=== PATIENT | male | born 1985 | race Two or more races ===

== ENCOUNTER 2017-04-22 06:08 | Emergency (ER) | payer OTHER ==
[~2017-04-22] VITALS: Ht 193 cm; Wt 93.2 kg
[2017-04-22] MEDS ORDERED: TYLE325T5 PO (06:24)
[2017-04-22] MEDS ORDERED: ASPIRIN 81 MG CHEW TABLET PO ONE (07:15)
[2017-04-22 07:25] LABS: BASO % 0.6 % (0.0-1.0); EOS # 0.1 K/mm3 (0.0-0.50); EOS % 1.6 % (0.0-3.0); LARGE UNSTAINED CELL # 0.1 K/mm3 (0.0-0.4); LARGE UNSTAINED CELL % 2.2 % (0.0-4.0); MEAN CORPUSCULAR HEMOGLOBIN 30.5 pg (27.0-33.0); MEAN CORPUSCULAR HGB CONC 33.4 g/dl (32.0-36.5); MEAN CORPUSCULAR VOLUME 91.4 fl (80.0-96.0); MONO # 0.4 K/mm3 (0.0-0.8); MONO % 6.9 % (0.0-5.0); NEUTROPHILS # 2.6 K/mm3 (1.8-7.7); NEUTROPHILS % 51.8 % (36.0-66.0); PLATELET COUNT, AUTOMATED 163 k/mm3 (150-450); RED CELL DISTRIBUTION WIDTH 12.9 % (11.5-14.5)
[2017-04-22 07:51] LABS: ANION GAP 3 MEQ/L (8-16); BLOOD UREA NITROGEN 17 MG/DL (7-18); CALCIUM LEVEL 9.1 MG/DL (8.5-10.1); CARBON DIOXIDE LEVEL 33 MEQ/L (21-32); CHLORIDE LEVEL 108 MEQ/L (98-107); CREATININE FOR GFR 1.24 MG/DL (0.70-1.30); GLOMERULAR FILTRATION RATE > 60.0 (>60); GLUCOSE, FASTING 91 MG/DL (70-105); POTASSIUM SERUM 4.1 MEQ/L (3.5-5.1); SODIUM LEVEL 144 MEQ/L (136-145)
--- NOTE | 2017-04-22 08:11 | REP ---
Clinical: Chest pain . Comparison: None . Findings: The mediastinum and cardiac silhouette are stable and within normal limits for portable technique. The lung hancock are clear without acute consolidation, effusion, or pneumothorax. Skeletal structures are intact. Impression: Normal portable chest x-ray Signed by Eugene Woods MD 04/22/2017 08:02 A
[2017-04-22 08:30] VITALS: BP 117/79
[2017-04-22] MEDS ORDERED: IBUP80TA PO (08:35)
--- NOTE | 2017-04-23 09:14 | ECGEPIP ---
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
== END 2017-04-22 09:03 | disposition home or self-care (01) ==
LOC: M ED 06:53
DX: R07.89 Other chest pain (principal); R00.1 Bradycardia, unspecified; I44.0 Atrioventricular block, first degree

== ENCOUNTER 2017-05-02 22:24 | Emergency (ER) | payer OTHER ==
[~2017-05-02] VITALS: Ht 193 cm; Wt 95.9 kg
[~2017-05-02 22:24] MED LIST: IBUP80TA PO; TYLE325T5 PO
[2017-05-02 22:25] VITALS: BP 118/69
--- NOTE | 2017-05-04 07:18 | ECGEPIP ---
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
== END 2017-05-03 00:04 | disposition left against medical advice (07) ==
LOC: M ED 22:24
DX: R07.9 Chest pain, unspecified (principal)

== ENCOUNTER → 2017-06-13 | Outpatient (REF) | payer OTHER ==
[2017-06-13 10:42] LABS: % NORMAL FORMS 4 % (>=4); IMMOTILITY 70 %; NON PROGRESSIVE MOTILITY (c) 12 %; PROGRESSIVE MOTILITY (a) 18 % (>=32); SPERM# 30.8 M/Ejac (>=39); TOTAL MOTILITY 30 % (>=40)
[2017-06-13 10:43] LABS: TOTAL FUNCTIONAL 0.5 M/Ejac.; TOTAL PROGRESSIVE SPERM 5.4 M/Ejac.
== END ==
LOC: M LAB REF 10:04
PROVIDERS: ATTEND Student in an Organized Health Care Education/Training Program
DX: Z31.41 Encounter for fertility testing (principal)

== ENCOUNTER → 2017-06-26 | Outpatient (REF) | payer OTHER ==
[2017-06-26 12:43] LABS: % NORMAL FORMS < 4 % (>=4); SPERM# 75.5 M/Ejac (>=39); TOTAL PROGRESSIVE SPERM 4.5 M/Ejac.
[2017-06-26 12:44] LABS: TOTAL FUNCTIONAL 0.2 M/Ejac.
== END ==
LOC: M LAB REF 10:53
PROVIDERS: ATTEND Student in an Organized Health Care Education/Training Program
DX: Z31.41 Encounter for fertility testing (principal)

== ENCOUNTER → 2017-09-10 | Outpatient (REF) | payer OTHER | LOC: M SMT 12:57 | PROVIDERS: ATTEND Nurse Practitioner Family | DX: N50.819 Testicular pain, unspecified (principal) | CPT/HCPCS: 81001; 87086; G0463 ==

== ENCOUNTER 2017-09-28 20:51 | Emergency (ER) | payer OTHER ==
[~2017-09-28] VITALS: Ht 193 cm; Wt 95.9 kg
[2017-09-28] MEDS ORDERED: DERMABOND TOPICAL SKIN ADHESIVE TOP ONE (23:00)
[2017-09-28 23:09] VITALS: BP 137/83
== END 2017-09-28 23:21 | disposition home or self-care (01) ==
LOC: M ED 20:51
DX: S71.111A Laceration without foreign body, right thigh, initial encounter (principal); W45.8XXA Other foreign body or object entering through skin, initial encounter; Y92.009 Unspecified place in unspecified non-institutional (private) residence as the place of occurrence of the external cause; Y93.E8 Activity, other personal hygiene; Y99.8 Other external cause status

== ENCOUNTER → 2018-01-03 | Outpatient (CLI) | payer OTHER ==
[2018-01-03 08:37] LABS: ESTRADIOL 38.3 PG/ML (<39.8)
[2018-01-03 08:47] LABS: SEMEN APPEARANCE OPAQUE (OPAQUE); SEMEN VOLUME 3.2 ML (4.0-5.0)
[2018-01-03 08:48] LABS: #IMMOTILE SPERM COUNTED 9.5; #MOTILE SPERM COUNTED 3.5; % MOTILITY 26 (> 40%); SEMEN VISCOSITY LIQUID (LIQUID); SEMEN WBC <=1 M/ml (<=1 M/ml); SPERM CONCENTRATION 6.5 M/ml (> 15 M/ml)
[2018-01-04 14:13] LABS: TESTOSTERONE FREE (DIRECT) 10.5 pg/mL (8.7-25.1)
== END ==
LOC: M LAB 07:19
DX: N46.9 Male infertility, unspecified (principal)

== ENCOUNTER 2018-01-24 20:53 | Emergency (ER) | payer OTHER | END 2018-01-24 22:37 | disposition home or self-care (01) | LOC: M ED 20:53 | DX: M25.562 Pain in left knee (principal); M25.561 Pain in right knee; M54.2 Cervicalgia; M54.5 Low back pain | CPT/HCPCS: 99282 ==

== ENCOUNTER → 2018-04-21 | Outpatient (CLI) | payer OTHER ==
[2018-04-21 10:39] LABS: ESTRADIOL 47.9 PG/ML (<39.8)
[2018-04-21 11:02] LABS: #MOTILE SPERM COUNTED 3; SEMEN APPEARANCE OPAQUE (OPAQUE); SEMEN VISCOSITY VISCOUS (LIQUID); SEMEN VOLUME 2.2 ML (4.0-5.0); SEMEN WBC <=1 M/ml (<=1 M/ml)
[2018-04-21 11:03] LABS: #IMMOTILE SPERM COUNTED 4; TOTAL # SPERM COUNTED 7 M/ml
[2018-04-21 11:04] LABS: SPERM CONCENTRATION 3.5 M/ml (> 15 M/ml)
[2018-04-21 11:05] LABS: % MOTILITY 47 (> 40%)
[2018-04-22 14:16] LABS: TESTOSTERONE FREE (DIRECT) 13.9 pg/mL (8.7-25.1)
== END ==
LOC: M LAB 09:20
DX: N46.11 Organic oligospermia (principal)